=== PATIENT | female | born 1990 | race Caucasian/White ===

== ENCOUNTER → 2016-07-12 | Outpatient (CLI) | payer OTHER ==
--- NOTE | 2016-07-12 12:55 | EKG REPORT ---
SEVERITY:- NORMAL ECG - SINUS RHYTHM : Confirmed by: Henrry Alaniz 12-Jul-2016 12:54:47
== END ==
LOC: OD 09:53
PROVIDERS: ATTEND Physician Assistant
DX: Z13.6 Encounter for screening for cardiovascular disorders (principal)
CPT/HCPCS: 93005; 93010

== ENCOUNTER → 2016-08-14 | Outpatient (CLI) | payer OTHER | LOC: OD 12:38 | PROVIDERS: ATTEND Physician Assistant | DX: Z01.818 Encounter for other preprocedural examination (principal); Z11.1 Encounter for screening for respiratory tuberculosis; Z13.6 Encounter for screening for cardiovascular disorders; E66.9 Obesity, unspecified; Z71.89 Other specified counseling | CPT/HCPCS: 71020 ==